=== PATIENT | male | born 1950 | race Caucasian/White ===

== ENCOUNTER 2023-01-04 14:44 | Inpatient (IN) | payer BC ==
[2023-01-04] VITALS (11 sets, daily range): BP systolic 130–165; BP diastolic 46–79
[~2023-01-04] VITALS: Ht 170.2 cm; Wt 104.8 kg
[~2023-01-04 14:44] MED LIST: heparin 10,000 units/1 ML INJ ONE; papaverine 30 mg/ml 2ml inj. ONE
[2023-01-04] MEDS ORDERED: diphenhydrAMINE 25mg capsule PO PRN (15:45)
[2023-01-04] MEDS ORDERED: LORazepam 0.5 MG tablet PO PRN (15:45)
[2023-01-04 15:51] LABS: BASOPHILS % (AUTO) 0.6 % (0-1); EOSINOPHILS # (AUTO) 0.2 X10'3 (0-0.9); EOSINOPHILS % (AUTO) 3.3 % (0-6); HEMATOCRIT 39.2 % (42.0-52.0); HEMOGLOBIN 13.2 g/dl (14.0-17.9); LYMPHOCYTES # (AUTO) 1.5 X10'3 (1.1-4.8); LYMPHOCYTES % (AUTO) 21.2 % (21-51); MEAN CORPUSCULAR HEMOGLOBIN 30.7 PG (27.0-31.0); MEAN CORPUSCULAR HGB CONC 33.7 g/dL (33.0-36.5); MEAN PLATELET VOLUME 7.9 FL (7.4-10.4); MONOCYTES # (AUTO) 0.6 X10'3 (0-0.9); MONOCYTES % (AUTO) 8.3 % (2-12); NEUTROPHILS # (AUTO) 4.9 X10'3 (1.8-7.7); NEUTROPHILS % (AUTO) 66.6 % (42-75); PLATELET COUNT 262 X10'3 (140-440); RED BLOOD COUNT 4.31 X10'6 (4.70-6.10); RED CELL DISTRIBUTION WIDTH 13.7 % (11.5-14.5); WHITE BLOOD COUNT 7.3 X10'3 (4.5-11.0)
[2023-01-04 15:57] LABS: ANION GAP 6 (8-16); BLOOD UREA NITROGEN 36 MG/DL (7-18); BUN/CREATININE RATIO 14.4 (5.4-32.0); CALCIUM 9.7 MG/DL (8.5-10.1); CHLORIDE 107 MMOL/L (99-107); GLUCOSE 219 MG/DL (70-104); POTASSIUM 4.6 MMOL/L (3.5-5.1); SODIUM 140 MMOL/L (135-145); TOTAL CARBON DIOXIDE 26.8 MMOL/L (24-32); eGFR 26 ML/MIN
[2023-01-04] MEDS ORDERED: midazolam 1 mg/ML 2ml injection ONE (16:06)
[2023-01-04] MEDS ORDERED: NITR0.4T48 SL (16:06)
[2023-01-04] MEDS ORDERED: LISI20TA28 PO (16:06)
[2023-01-04] MEDS ORDERED: heparin 1,000unit/ml 10ml vial 10 ML ONE (16:06)
[2023-01-04] MEDS ORDERED: fentaNYL/PF 50MCG/1 ML 2ML syringe ONE (16:06)
[2023-01-04] MEDS ORDERED: METF-438 PO (16:06)
[2023-01-04] MEDS ORDERED: verapamil 2.5 mg/ml inj IV ONE (16:06)
[2023-01-04] MEDS ORDERED: LIDOcaine 1% (10mg/ml) 2ml vial ONE (16:06)
[2023-01-04] MEDS ORDERED: nitroGLYCERIN-Tridil 50MG/D5W 250 ML IV ONE (16:06)
[2023-01-04] MEDS ORDERED: METO-395 PO (16:06)
[2023-01-04] MEDS ORDERED: LEVO88TA7 PO (16:06)
[2023-01-04] MEDS ORDERED: SIMV-45 PO (16:06)
[2023-01-04] MEDS ORDERED: TERA1CAP4 PO (16:06)
[2023-01-04] MEDS: normal saline 1,000 ML IV SCH (16:07)
[2023-01-04] MEDS ORDERED: iohexol 350MG/ML 100ml bottle IV ONE (16:07)
[2023-01-04] MEDS ORDERED: ADAL40KI SQ (16:10)
[2023-01-04] MEDS ORDERED: ASPI-1053 PO (16:10)
[2023-01-04] MEDS ORDERED: DAPA10TA PO (16:10)
[2023-01-04] MEDS ORDERED: CINN500C15 PO (16:10)
[2023-01-04] MEDS ORDERED: OMEG-5 PO (16:10)
[2023-01-04] MEDS ORDERED: OMEP40CA21 PO (16:10)
[2023-01-04] MEDS ORDERED: VALERIAN ROOT PO (16:16)
[2023-01-04] MEDS ORDERED: CHOL20002 PO ×2 (16:20→16:44)
[2023-01-04] MEDS ORDERED: MULT-1085 PO (16:20)
[2023-01-04] MEDS ORDERED: UBID100C45 PO (16:44)
[2023-01-04 16:58] LABS: APTT 30 SECONDS (22-32)
[2023-01-04] MEDS ORDERED: heparin 25,000 UNIT/250ml bag 250 ML IV ONE (19:02)
--- NOTE | 2023-01-04 19:14 | NUR ---
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 Patient being admitted to PCU for surgical consult. Vital signs stable. NSR on site monitor. Right radial stable with vasc band in place. Patient denies chest pain.
[2023-01-04] MEDS ORDERED: temazepam 15mg capsule PO PRN (19:25)
[2023-01-04] MEDS ORDERED: nitroGLYCERIN 1gm ointment UD TP ONE (19:25)
--- NOTE | 2023-01-04 19:26 | NUR ---
New order from Dr. Dooley. 2" nitro paste now. DC 01/05/23 @ 0700. Restoril 30 mg PO HS today.
[2023-01-04] MEDS ORDERED: HYDROcodone/acetaminophen 10/325mg tab PO PRN (19:50)
[2023-01-04] MEDS ORDERED: HYDROcodone/acetaminophen 5mg/325mg tablet PO PRN (19:50)
[2023-01-04] MEDS ORDERED: proCHLORperazine 10 MG/2 ml inj IV PRN (19:50)
[2023-01-04] MEDS ORDERED: OXAZEpam 15mg capsule PO PRN (19:50)
[2023-01-04] MEDS ORDERED: nitroGLYCERIN 0.4mg SUBLingual tab SL PRN (19:50)
[2023-01-04] MEDS ORDERED: ondansetron/PF 4mg/2ml inj IV PRN (19:50)
[2023-01-04] MEDS ORDERED: heparin 10,000 units/1 ML INJ IV ONE (20:18)
[2023-01-04] MEDS ORDERED: heparin 25,000 UNIT/250ml bag 250 ML IV PRN (20:19)
[2023-01-04] MEDS ORDERED: heparin 10,000 units/1 ML INJ IV PRN (20:22)
[2023-01-04] MEDS ORDERED: nitroGLYCERIN 0.4mg SUBLingual tab SL SCH (20:25)
[2023-01-04] MEDS ORDERED: MESSAGE TO NURSING PO ONE ×4 (20:35)
[2023-01-04] MEDS ORDERED: MESSAGE TO PHARMACY IJ ONE (20:35)
[2023-01-04] MEDS ORDERED: dextrose 50%-water 50ml dispensing syringe IV PRN (20:35)
[2023-01-04] MEDS ORDERED: VALERIAN ROOT PO SCH (21:00)
--- NOTE | 2023-01-04 21:30 | NUR ---
Report called to JOANN Engel. Patient to be admitted to [facility] 3012[facility].
--- NOTE | 2023-01-04 22:10 | NUR ---
Patient transported to [facility] in stable condition. Tele monitor in place. Bedside report given to JOANN Engel. All questions answered.
[2023-01-04 23:18] LABS: BASOPHILS % (AUTO) 0.4 % (0-1); EOSINOPHILS # (AUTO) 0.3 X10'3 (0-0.9); EOSINOPHILS % (AUTO) 3.9 % (0-6); HEMOGLOBIN 12.5 g/dl (14.0-17.9); LYMPHOCYTES # (AUTO) 1.8 X10'3 (1.1-4.8); LYMPHOCYTES % (AUTO) 23.1 % (21-51); MEAN CORPUSCULAR HEMOGLOBIN 29.9 PG (27.0-31.0); MEAN CORPUSCULAR HGB CONC 32.8 g/dL (33.0-36.5); MEAN CORPUSCULAR VOLUME 91.3 FL (78-98); MEAN PLATELET VOLUME 7.9 FL (7.4-10.4); MONOCYTES # (AUTO) 0.8 X10'3 (0-0.9); MONOCYTES % (AUTO) 9.9 % (2-12); NEUTROPHILS # (AUTO) 4.9 X10'3 (1.8-7.7); NEUTROPHILS % (AUTO) 62.7 % (42-75); PLATELET COUNT 258 X10'3 (140-440); RED BLOOD COUNT 4.17 X10'6 (4.70-6.10); RED CELL DISTRIBUTION WIDTH 13.8 % (11.5-14.5); WHITE BLOOD COUNT 7.9 X10'3 (4.5-11.0)
[2023-01-04 23:26] LABS: APTT 40 SECONDS (22-32)
[2023-01-04 23:44] LABS: ABG BASE EXCESS -4.8 mmol/L (-2.0-2.0); ABG HCO3 19.8 mmol/L (22.0-26.0); ABG OXYGEN SATURATION 94.4 % (94-97); ABG PCO2 (T) 35.2 mmHg (35.0-48.0); ABG PO2 (T) 74.2 mmHg (75.0-100.0); ALLEN'S TEST POSITIVE; FCOHb 0.3 % (0.0-3.9); FMetHb 0.2 % (0.0-1.5); FO2Hb 93.9 % (94-97); TOTAL HEMOGLOBIN 12.2 G/dl (14.0-17.9)
[2023-01-05] VITALS (12 sets, daily range): BP systolic 85–145; BP diastolic 48–67
[2023-01-05] MEDS: Terazosin 1mg capsule PO SCH ×2 (00:31→21:00)
[2023-01-05] MEDS: normal saline 1,000 ML IV SCH ×2 (01:45→11:45)
[2023-01-05 03:23] LABS: BASOPHILS % (AUTO) 0.5 % (0-1); EOSINOPHILS # (AUTO) 0.3 X10'3 (0-0.9); EOSINOPHILS % (AUTO) 3.9 % (0-6); HEMATOCRIT 34.3 % (42.0-52.0); HEMOGLOBIN 11.5 g/dl (14.0-17.9); LYMPHOCYTES # (AUTO) 1.8 X10'3 (1.1-4.8); LYMPHOCYTES % (AUTO) 26.9 % (21-51); MEAN CORPUSCULAR HEMOGLOBIN 30.6 PG (27.0-31.0); MEAN CORPUSCULAR HGB CONC 33.6 g/dL (33.0-36.5); MEAN PLATELET VOLUME 7.9 FL (7.4-10.4); MONOCYTES # (AUTO) 0.6 X10'3 (0-0.9); MONOCYTES % (AUTO) 9.1 % (2-12); NEUTROPHILS # (AUTO) 3.9 X10'3 (1.8-7.7); NEUTROPHILS % (AUTO) 59.6 % (42-75); PLATELET COUNT 223 X10'3 (140-440); RED BLOOD COUNT 3.77 X10'6 (4.70-6.10); RED CELL DISTRIBUTION WIDTH 13.5 % (11.5-14.5); WHITE BLOOD COUNT 6.6 X10'3 (4.5-11.0)
[2023-01-05 03:30] LABS: ALBUMIN 3.1 G/DL (3.4-5.0); ANION GAP 9 (8-16); BLOOD UREA NITROGEN 35 MG/DL (7-18); CALCIUM 8.8 MG/DL (8.5-10.1); CHLORIDE 109 MMOL/L (99-107); CREATININE 2.34 MG/DL (0.60-1.10); GLUCOSE 156 MG/DL (70-104); POTASSIUM 4.4 MMOL/L (3.5-5.1); SODIUM 141 MMOL/L (135-145); TOTAL CARBON DIOXIDE 22.6 MMOL/L (24-32); eGFR 28 ML/MIN
[2023-01-05] MEDS ORDERED: ondansetron 4mg rapidly disintigrating tab PO PRN (06:00)
[2023-01-05] MEDS ORDERED: cefazolin 2gm/D5W 100mL 100 ML IV ONE (07:00)
[2023-01-05] MEDS ORDERED: gabapentin 400mg capsule PO ONE (07:00)
[2023-01-05] MEDS ORDERED: insulin glargine (Lantus) pen - multi-dose SQ PRN ×2 (07:00→18:45)
[2023-01-05] MEDS ORDERED: pantoprazole 40mg Tablet.DR PO SCH (07:30)
[2023-01-05] MEDS ORDERED: aspirin 81mg tab.chew PO SCH (08:00)
[2023-01-05] MEDS: levoTHYROXINE 88mcg tablet PO SCH (08:00)
[2023-01-05] MEDS ORDERED: lisinopril 20mg tablet PO SCH (08:00)
[2023-01-05] MEDS ORDERED: atorvastatin 20mg tablet PO SCH (08:00)
[2023-01-05] MEDS ORDERED: metoprolol succinate 25mg (24-HOUR) SR. Tablet PO SCH (08:00)
[2023-01-05] MEDS ORDERED: OMEGA-3/DHA/EPA/FISH OIL 1 EACH CAPSULE.DR PO SCH (08:00)
[2023-01-05] MEDS ORDERED: mupirocin 2% nasal ointment 1gm UD NS SCH (08:00)
[2023-01-05] MEDS ORDERED: DAPAGLIFLOZIN 10MG TABLET PO SCH (08:00)
[2023-01-05] MEDS: multivitamins, therapeutics tablet PO SCH (08:06)
[2023-01-05] MEDS: cholecalciferol (vitamin D3) 1,000 unit (25mcg) tablet PO SCH (08:07)
[2023-01-05] MEDS ORDERED: LORazepam 2 mg/ml vial IV ONE (09:55)
[2023-01-05] MEDS ORDERED: MESSAGE TO NURSING PO ONE (10:00)
--- NOTE | 2023-01-05 10:42 | NUR ---
DM Consult: Pt hx T2DM A1C 8.0% currently in OR for CABG during RD attempted visit today. Pt would benefit from DM/HH/high protein diet eds once appropriate post-op prior to discharge. Addendum: 01/05/23 at [address] Amended: Links added.
[2023-01-05] MEDS ORDERED: albumin (human) 25% 100 ML IV solution IV ONE (12:00)
[2023-01-05] MEDS ORDERED: heparin 10,000 units/1 ML INJ ONE (12:00)
[2023-01-05] MEDS ORDERED: NORepinephrine bitart. inj. IV ONE (12:00)
[2023-01-05] MEDS ORDERED: magnesium 1 GM/2 ML inj ONE (12:00)
[2023-01-05] MEDS ORDERED: potassium Cl 2 mEq/ml inj IV ONE (12:00)
[2023-01-05] MEDS ORDERED: mannitol 12.5gm/50mL VIAL IV ONE (12:00)
[2023-01-05] MEDS ORDERED: calcium chloride 100 MG/1 ML inj IV ONE (12:00)
[2023-01-05] MEDS ORDERED: sodium bicarbonate (8.4%) 1 mEq/ml syringe ONE (12:00)
[2023-01-05] MEDS ORDERED: aminocaproic acid 250 MG/1 ML inj. ONE (12:00)
[2023-01-05] MEDS ORDERED: methylPREDNISolone sod succ 1000mg vial ONE (12:00)
[2023-01-05] MEDS ORDERED: LIDOcaine 2% (20 mg/ml) 5ml cardiac syringe ONE (12:00)
[2023-01-05] MEDS ORDERED: propofol inj 20 ML IV ONE (12:04)
[2023-01-05] MEDS ORDERED: SUfentanil 50mcg/ml 1ml amp IV ONE (12:04)
[2023-01-05] MEDS ORDERED: rocuronium 10mg/ml inj IV ONE ×2 (12:04→12:36)
[2023-01-05] MEDS ORDERED: MIDAZolam 1 MG/ML 5ML VIAL ONE (12:04)
[2023-01-05] MEDS ORDERED: protamine sulf. 10mg/ml inj. IV ONE (12:36)
[2023-01-05] MEDS ORDERED: sevoflurane 250ml liquid IH ONE (12:36)
[2023-01-05] MEDS ORDERED: nitroGLYCERIN in D5W 50mg/250ml (Tridil) infusion IV ONE (12:36)
--- NOTE | 2023-01-05 12:42 | NUR ---
Patients heparin was stopped at [address] Stroud called back around 1100 and advised me to restart the heparin, and that the patient would go down to surgery with it running.
[2023-01-05 13:36] LABS: ABG BASE EXCESS -3.1 mmol/L (-2.0-2.0); ABG HCO3 21.9 mmol/L (22.0-26.0); ABG OXYGEN SATURATION 99.1 % (94-97); ABG PCO2 39.1 mmHg (35.0-48.0); ABG PO2 229.7 mmHg (75.0-100.0); CL (ABG) 110 mmol/L (99-107); FCOHb 0.2 % (0.0-3.9); FMetHb 0.3 % (0.0-1.5); FO2Hb 98.6 % (94-97); GLUCOSE (ABG) 149 mg/dl (70-104); IONIZED CA (ABG) 1.19 mmol/L (1.10-1.30); K (ABG) 4.7 mmol/L (3.5-5.1); TOTAL HEMOGLOBIN 11.4 G/dl (14.0-17.9)
[2023-01-05] MEDS ORDERED: BUPIVAcaine 0.5% inj/PF 30 ML ONE (13:37)
--- NOTE | 2023-01-05 13:50 | NUR ---
Pt went to OR for CABG. Tele discontinued. All belongings collected and sent with patient. Pt will go to ICU post op.
[2023-01-05] MEDS ORDERED: BUPIVAcaine 0.5% inj/PF 30 ml vial IJ ONE (14:08)
[2023-01-05] MEDS ORDERED: papaverine 30 mg/ml 2ml inj. IA ONE (14:10)
[2023-01-05] MEDS ORDERED: heparin 10,000 units/1 ML INJ IR ONE (14:11)
[2023-01-05 15:40] LABS: ABG BASE EXCESS VENOUS -3.4 mmol/L (-2.0 - 2.0); ABG PCO2 VENOUS 48.1 mmHg (41.0-54.0); ABG PO2 VENOUS 56.2 mmHg (25.0-35.0); CL (ABG) 108 mmol/L (99-107); FCOHb VENOUS 0.8 %; FHHb VENOUS 12.3 %; FMetHb VENOUS 0.3 % (0.0 - 0.5); FO2Hb VENOUS 86.6 %; GLUCOSE (ABG) 144 mg/dl (70-104); IONIZED CA (ABG) 1.07 mmol/L (1.10-1.30); K (ABG) 5.8 mmol/L (3.5-5.1); TOTAL HEMOGLOBIN 8.9 G/dl (14.0-17.9)
[2023-01-05 15:43] LABS: ABG BASE EXCESS -3.4 mmol/L (-2.0-2.0); ABG HCO3 22.6 mmol/L (22.0-26.0); ABG PCO2 45.4 mmHg (35.0-48.0); ABG PO2 475.3 mmHg (75.0-100.0); CL (ABG) 108 mmol/L (99-107); FMetHb 0.3 % (0.0-1.5); FO2Hb 98.7 % (94-97); GLUCOSE (ABG) 144 mg/dl (70-104); IONIZED CA (ABG) 1.09 mmol/L (1.10-1.30); K (ABG) 5.3 mmol/L (3.5-5.1)
[2023-01-05 16:12] LABS: ABG BASE EXCESS -3.9 mmol/L (-2.0-2.0); ABG HCO3 21.9 mmol/L (22.0-26.0); ABG OXYGEN SATURATION 99.4 % (94-97); ABG PO2 381.3 mmHg (75.0-100.0); CL (ABG) 109 mmol/L (99-107); FCOHb 0.7 % (0.0-3.9); FMetHb 0.3 % (0.0-1.5); FO2Hb 98.4 % (94-97); GLUCOSE (ABG) 151 mg/dl (70-104); IONIZED CA (ABG) 1.09 mmol/L (1.10-1.30); K (ABG) 5.3 mmol/L (3.5-5.1)
[2023-01-05 16:41] LABS: ABG OXYGEN SATURATION 99.2 % (94-97); ABG PCO2 43.3 mmHg (35.0-48.0); ABG PO2 332.1 mmHg (75.0-100.0); CL (ABG) 108 mmol/L (99-107); FCOHb 0.4 % (0.0-3.9); FMetHb 0.3 % (0.0-1.5); FO2Hb 98.5 % (94-97); GLUCOSE (ABG) 164 mg/dl (70-104); IONIZED CA (ABG) 1.11 mmol/L (1.10-1.30); K (ABG) 5.4 mmol/L (3.5-5.1); TOTAL HEMOGLOBIN 9.2 G/dl (14.0-17.9)
[2023-01-05 17:10] LABS: ABG BASE EXCESS -2.5 mmol/L (-2.0-2.0); ABG HCO3 22.6 mmol/L (22.0-26.0); ABG OXYGEN SATURATION 98.7 % (94-97); ABG PO2 262.2 mmHg (75.0-100.0); CL (ABG) 108 mmol/L (99-107); FCOHb 0.3 % (0.0-3.9); FMetHb 0.3 % (0.0-1.5); FO2Hb 98.1 % (94-97); GLUCOSE (ABG) 185 mg/dl (70-104); IONIZED CA (ABG) 1.73 mmol/L (1.10-1.30); K (ABG) 5.8 mmol/L (3.5-5.1); TOTAL HEMOGLOBIN 8.6 G/dl (14.0-17.9)
[2023-01-05 17:43] LABS: ABG BASE EXCESS VENOUS -3.6 mmol/L (-2.0 - 2.0); ABG HCO3 VENOUS 22.8 mmol/L (21.0-28.0); ABG PCO2 VENOUS 47.2 mmHg (41.0-54.0); ABG PO2 VENOUS 46.1 mmHg (25.0-35.0); CL (ABG) 108 mmol/L (99-107); FHHb VENOUS 19.6 %; FMetHb VENOUS 0.3 % (0.0 - 0.5); FO2Hb VENOUS 79.1 %; GLUCOSE (ABG) 182 mg/dl (70-104); IONIZED CA (ABG) 1.26 mmol/L (1.10-1.30); K (ABG) 5.3 mmol/L (3.5-5.1); TOTAL HEMOGLOBIN 9.5 G/dl (14.0-17.9)
[2023-01-05 17:46] LABS: ACTIVATED CLOTTING TIME 127 SEC (101-148)
[2023-01-05] MEDS ORDERED: ceFAZolin 1000mg inj ONE ×2 (18:00)
[2023-01-05] MEDS ORDERED: albumin (Human) 5% 250ml 250 ML IV ONE ×2 (18:08)
[2023-01-05] MEDS ORDERED: fentaNYL/PF 50MCG/1 ML 2ML syringe ONE (18:14)
[2023-01-05] MEDS: Insulin Reg/NS 100units/100mL 100 ML IV SCH (18:44)
--- NOTE | 2023-01-05 18:44 | NUR ---
Received to room 2007, accompanied by MDs and surgical crew. 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 Chest tubes to suction at 20 cm. Peres cath to gravity drainage. Dressings are dry and intact. See assessment record. All IV drips: Nitro, Insulin, 1/2 NS are infusing via central line.
[2023-01-05] MEDS ORDERED: potassium CL 10mEq/100ml bag 100 ML IV PRN (18:45)
[2023-01-05] MEDS ORDERED: magnesium 4gm in 100ml NS 100 ML IV PRN (18:45)
[2023-01-05] MEDS: sodium chloride 0.45% 1,000 ML IV SCH (18:45)
[2023-01-05] MEDS ORDERED: magnesium 2GM in 50ml NS 50 ML IV PRN (18:45)
[2023-01-05] MEDS ORDERED: Insulin Reg/NS 100units/100mL 100 ML IV SCH (18:45)
[2023-01-05] MEDS ORDERED: sodium phosphate inj. 30 MMOL in dextrose 5%-water 250 ML IV PRN (18:45)
[2023-01-05] MEDS ORDERED: HYDROcodone/acetaminophen 10/325mg tab PO PRN (18:45)
[2023-01-05] MEDS ORDERED: morphine 4 MG/ML inj SYRINge IV PRN (18:45)
[2023-01-05] MEDS ORDERED: potassium Cl 40MEQ/1/2NS 520ml 520 ML IV PRN (18:45)
[2023-01-05] MEDS ORDERED: bisacodyl 10mg suppository rectal RC PRN (18:45)
[2023-01-05] MEDS ORDERED: potassium Cl 40MEQ/270ML bag 250 ML IV PRN (18:45)
[2023-01-05] MEDS ORDERED: magnesium citrate 296ml oral solution PO PRN (18:45)
[2023-01-05] MEDS ORDERED: Neutra Phos packet PO PRN (18:45)
[2023-01-05] MEDS ORDERED: magnesium hydroxide 30ml (MOM) UD suspension PO PRN (18:45)
[2023-01-05] MEDS ORDERED: normal saline 250ml IV soln 250 ML IV PRN (18:45)
[2023-01-05] MEDS ORDERED: niCARDipine-NS 40mg/200ml IVPB 200 ML IV PRN (18:45)
[2023-01-05] MEDS ORDERED: sodium phosphate inj. 15 MMOL in dextrose 5%-water 250 ML IV PRN (18:45)
[2023-01-05] MEDS ORDERED: potassium Cl 20mEq/100mL bag 100 ML IV PRN (18:45)
[2023-01-05] MEDS ORDERED: DOPamine 400mg/D5W 250ml 250 ML IV PRN (18:45)
[2023-01-05] MEDS ORDERED: dextrose 50%-water 50ml dispensing syringe IV PRN (18:45)
[2023-01-05] MEDS ORDERED: nitroGLYCERIN-Tridil 50MG/D5W 250 ML IV PRN (18:45)
[2023-01-05] MEDS ORDERED: metoclopramide 5 mg/ml inj IV PRN (18:45)
[2023-01-05] MEDS ORDERED: potassium Cl 20 mEq SR tablet PO PRN (18:45)
[2023-01-05] MEDS ORDERED: acetaminophen 325mg tablet PO PRN ×2 (18:45)
[2023-01-05] MEDS ORDERED: ondansetron/PF 4mg/2ml inj IV PRN (18:45)
[2023-01-05] MEDS ORDERED: mineral oil 133ml enema RC PRN (18:45)
[2023-01-05 19:00] LABS: BASOPHILS % (AUTO) 0.3 % (0-1); EOSINOPHILS % (AUTO) 0.5 % (0-6); HEMATOCRIT 30.4 % (42.0-52.0); HEMOGLOBIN 9.9 g/dl (14.0-17.9); LYMPHOCYTES # (AUTO) 0.5 X10'3 (1.1-4.8); LYMPHOCYTES % (AUTO) 5.6 % (21-51); MEAN CORPUSCULAR HEMOGLOBIN 29.9 PG (27.0-31.0); MEAN CORPUSCULAR HGB CONC 32.6 g/dL (33.0-36.5); MEAN CORPUSCULAR VOLUME 91.8 FL (78-98); MEAN PLATELET VOLUME 7.8 FL (7.4-10.4); MONOCYTES # (AUTO) 0.5 X10'3 (0-0.9); MONOCYTES % (AUTO) 5.2 % (2-12); NEUTROPHILS # (AUTO) 7.8 X10'3 (1.8-7.7); NEUTROPHILS % (AUTO) 88.4 % (42-75); PLATELET COUNT 136 X10'3 (140-440); RED BLOOD COUNT 3.31 X10'6 (4.70-6.10); RED CELL DISTRIBUTION WIDTH 13.6 % (11.5-14.5); WHITE BLOOD COUNT 8.8 X10'3 (4.5-11.0)
[2023-01-05 19:16] LABS: ALANINE AMINOTRANSFERASE 23 U/L (12-78); ALBUMIN 3.2 G/DL (3.4-5.0); ALBUMIN/GLOBULIN RATIO 1.5 (1.1-1.5); ALKALINE PHOSPHATASE 47 IU/L (46-116); ANION GAP 8 (8-16); ASPARTATE AMINO TRANSFERASE 37 U/L (10-37); BILIRUBIN,TOTAL 0.7 MG/DL (0.1-1.0); BLOOD UREA NITROGEN 27 MG/DL (7-18); BUN/CREATININE RATIO 12.8 (5.4-32.0); CHLORIDE 111 MMOL/L (99-107); CREATININE 2.11 MG/DL (0.60-1.10); GLUCOSE 161 MG/DL (70-104); MAGNESIUM 3.1 MG/DL (1.5-2.4); PHOSPHORUS 3.6 MG/DL (2.3-4.5); SODIUM 142 MMOL/L (135-145); TOTAL CARBON DIOXIDE 23.2 MMOL/L (24-32); TOTAL PROTEIN 5.4 G/DL (6.4-8.2); eGFR 31 ML/MIN
[2023-01-05 19:46] LABS: CLARITY,URINE CLEAR (Clear); COLOR,URINE YELLOW (Yellow); GLUCOSE, URINE 500 mg/dl (Neg); KETONES,URINE NEGATIVE (Neg); LEUKOCYTE ESTERASE ,URINE NEGATIVE (Neg); NITRITES, URINE NEGATIVE (Neg); OCCULT BLOOD,URINE MODERATE (Neg); PROTEIN,URINE NEGATIVE (Neg); UROBILINOGEN,URINE 0.2 E.U/dL (0.2-1.0)
[2023-01-05 19:52] LABS: TOTAL PROTEIN,URINE RANDOM 23.7 MG/DL
[2023-01-05] MEDS: mupirocin 2% nasal ointment 1gm UD NS SCH (20:00)
[2023-01-05] MEDS: sennosides/docusate sodium tablet PO SCH (20:00)
[2023-01-05] MEDS: vancomycin/NS 1 GM ADD-VANTAGE 250 ML IV SCH (20:00)
[2023-01-05 20:05] LABS: UA COLLECTION TYPE NON-SPECIFIED
[2023-01-05 20:09] LABS: BACTERIA,URINE NONE SEEN /HPF (Neg); MUCUS STRANDS FEW /LPF (Neg); SQUAMOUS EPITHELIAL CELL,UR FEW /LPF (FEW); WBC,URINE 0-4 /HPF (0-4)
[2023-01-05 20:22] LABS: APTT 29 SECONDS (22-32)
--- NOTE | 2023-01-05 20:30 | NUR ---
Dr. Stroud updated on patient's current labs and hemodynamics. Orders received.
[2023-01-05 20:44] LABS: UA EOSINOPHILS FEW EOS /HPF
[2023-01-05] MEDS: atorvastatin 10mg tablet PO SCH (21:00)
[2023-01-05] MEDS ORDERED: gabapentin 300mg capsule PO SCH (21:00)
[2023-01-05] MEDS: albumin (Human) 5% 250ml 250 ML IV PRN ×2 (21:32→22:30)
[2023-01-05] MEDS ORDERED: NORepinephrine 8mg/ 250ml NS 250 ML IV PRN (22:50)
[2023-01-05 23:09] LABS: ABG BASE EXCESS -6.7 mmol/L (-2.0-2.0); ABG HCO3 19.8 mmol/L (22.0-26.0); ABG OXYGEN SATURATION 97.5 % (94-97); ABG PCO2 (T) 41.5 mmHg (35.0-48.0); ABG PO2 (T) 112.7 mmHg (75.0-100.0); FCOHb 0.3 % (0.0-3.9); FMetHb 0.2 % (0.0-1.5); PATIENT TEMPERATURE 35.7; PEEP 5 cm H2O; RESPIRATORY RATE 12 b/min; TIDAL VOLUME 500 mL; TOTAL HEMOGLOBIN 10.8 G/dl (14.0-17.9)
[2023-01-06] VITALS (25 sets, daily range): BP systolic 100–143; BP diastolic 40–74
[2023-01-06] MEDS: morphine 2 MG/ML inj. syringe IV PRN ×3 (00:47→16:00)
--- NOTE | 2023-01-06 00:53 | NUR ---
Weaning from ventilator in progress. Patient occasionally opens eyes spontaneously and to voice. Not following commands yet but nods head to questioning regarding pain. Medicated for pain level of 4 to 6 per non verbal pain scale. O2 sats 92% on 40%. Titrating Levophed at low dose to keep MAP within parameters.
[2023-01-06] MEDS: ceFAZolin/D5W- 1GM premix 50 ML IV SCH ×3 (01:01→15:59)
[2023-01-06 02:38] LABS: BASOPHILS % (AUTO) 0.1 % (0-1); EOSINOPHILS % (AUTO) 0 % (0-6); HEMATOCRIT 30.1 % (42.0-52.0); HEMOGLOBIN 9.9 g/dl (14.0-17.9); LYMPHOCYTES # (AUTO) 0.5 X10'3 (1.1-4.8); LYMPHOCYTES % (AUTO) 3.6 % (21-51); MEAN CORPUSCULAR HEMOGLOBIN 30.3 PG (27.0-31.0); MEAN PLATELET VOLUME 8.1 FL (7.4-10.4); MONOCYTES # (AUTO) 0.6 X10'3 (0-0.9); MONOCYTES % (AUTO) 4.8 % (2-12); NEUTROPHILS # (AUTO) 11.5 X10'3 (1.8-7.7); NEUTROPHILS % (AUTO) 91.5 % (42-75); PLATELET COUNT 180 X10'3 (140-440); RED BLOOD COUNT 3.27 X10'6 (4.70-6.10); RED CELL DISTRIBUTION WIDTH 13.8 % (11.5-14.5); WHITE BLOOD COUNT 12.6 X10'3 (4.5-11.0)
[2023-01-06 02:48] LABS: ABG BASE EXCESS -5.7 mmol/L (-2.0-2.0); ABG HCO3 19.9 mmol/L (22.0-26.0); ABG OXYGEN SATURATION 94.6 % (94-97); ABG PCO2 (T) 39.9 mmHg (35.0-48.0); ABG PO2 (T) 77.4 mmHg (75.0-100.0); FCOHb 0.3 % (0.0-3.9); FMetHb 0.2 % (0.0-1.5); FO2Hb 94.1 % (94-97); PATIENT TEMPERATURE 37.4; TOTAL HEMOGLOBIN 10.7 G/dl (14.0-17.9)
[2023-01-06 02:48] LABS: APTT 35 SECONDS (22-32)
[2023-01-06 02:56] LABS: ALANINE AMINOTRANSFERASE 24 U/L (12-78); ALBUMIN 3.7 G/DL (3.4-5.0); ALBUMIN/GLOBULIN RATIO 1.7 (1.1-1.5); ALKALINE PHOSPHATASE 47 IU/L (46-116); ANION GAP 11 (8-16); ASPARTATE AMINO TRANSFERASE 41 U/L (10-37); BILIRUBIN,TOTAL 0.6 MG/DL (0.1-1.0); BLOOD UREA NITROGEN 28 MG/DL (7-18); CHLORIDE 112 MMOL/L (99-107); CREATININE 2.55 MG/DL (0.60-1.10); GLUCOSE 155 MG/DL (70-104); MAGNESIUM 2.8 MG/DL (1.5-2.4); PHOSPHORUS 2.5 MG/DL (2.3-4.5); POTASSIUM 5.4 MMOL/L (3.5-5.1); SODIUM 144 MMOL/L (135-145); TOTAL CARBON DIOXIDE 21.1 MMOL/L (24-32); TOTAL PROTEIN 5.9 G/DL (6.4-8.2); eGFR 25 ML/MIN
--- NOTE | 2023-01-06 03:17 | NUR ---
Dr. Stroud updated on current ABG, hemodynamics and latest labs. Okay to extubate per MD if patient passes weaning parameters
--- NOTE | 2023-01-06 03:43 | NUR ---
Extubated patient with RT without incident after passing weaning trial. Able to manage airway and secretions,educated on use of heart pillow for splinting while coughing, patient verbalizes understanding. Medicated for pain level of 5 per patient statement.
--- NOTE | 2023-01-06 06:14 | NUR ---
Problems reprioritized. Patient report given, questions answered & plan of care reviewed with Luis DAVID.
[2023-01-06] MEDS ORDERED: DEXTROSE 15 GM of carb/4 tabs (each vial/BOTTLE has 4 tablets) PO PRN ×2 (06:40)
[2023-01-06] MEDS ORDERED: glucagon, human recombinant 1mg kit SUBCUT PRN (06:40)
[2023-01-06] MEDS ORDERED: dextrose 50%-water 50ml dispensing syringe IV PRN ×2 (06:40)
[2023-01-06] MEDS: metoprolol tartrate 12.5mg (1/2 tablet) PO SCH ×2 (08:00→21:44)
[2023-01-06] MEDS: Insulin Reg/NS 100units/100mL 100 ML IV SCH (08:16)
[2023-01-06] MEDS: vancomycin/NS 1 GM ADD-VANTAGE 250 ML IV SCH ×2 (08:29→20:07)
[2023-01-06] MEDS ORDERED: HYDROcodone/acetaminophen 5mg/325mg tablet PO PRN (08:30)
[2023-01-06] MEDS: cholecalciferol (vitamin D3) 1,000 unit (25mcg) tablet PO SCH (08:31)
[2023-01-06] MEDS: multivitamins, therapeutics tablet PO SCH (08:31)
[2023-01-06] MEDS: mupirocin 2% nasal ointment 1gm UD NS SCH ×2 (08:32→20:07)
[2023-01-06] MEDS: sennosides/docusate sodium tablet PO SCH ×2 (08:32→20:03)
[2023-01-06] MEDS: aspirin 81mg tab.chew PO SCH (08:32)
[2023-01-06] MEDS: levoTHYROXINE 88mcg tablet PO SCH (08:44)
[2023-01-06] MEDS: insulin Lispro (HumaLOG) vial - multi-dose SQ SCH ×3 (09:29→18:23)
--- NOTE | 2023-01-06 10:33 | NUR ---
Nutrition consult: Pt POD #1 s/p CABG x 2, just extubated early this morning per EMR. Pt would benefit from post-CABG and DM nutrition therapy educations once appropriate with A1c 8.0%. Will continue to follow. Addendum: 01/06/23 at [address] Amended: Links added.
[2023-01-06 12:23] LABS: ALBUMIN 3.3 G/DL (3.4-5.0); ANION GAP 7 (8-16); BLOOD UREA NITROGEN 29 MG/DL (7-18); BUN/CREATININE RATIO 10.9 (5.4-32.0); CALCIUM 8.7 MG/DL (8.5-10.1); CHLORIDE 112 MMOL/L (99-107); CREATININE 2.65 MG/DL (0.60-1.10); GLUCOSE 135 MG/DL (70-104); MAGNESIUM 2.5 MG/DL (1.5-2.4); SODIUM 142 MMOL/L (135-145); TOTAL CARBON DIOXIDE 23.3 MMOL/L (24-32); eGFR 24 ML/MIN
--- NOTE | 2023-01-06 18:18 | NUR ---
Problems reprioritized. Patient report given, questions answered & plan of care reviewed with Elsi DAVID.
[2023-01-06] MEDS: HYDROcodone/acetaminophen 10/325mg tab PO PRN (20:03)
[2023-01-06] MEDS: atorvastatin 10mg tablet PO SCH (20:03)
[2023-01-06] MEDS: Terazosin 1mg capsule PO SCH (21:00)
[2023-01-07] VITALS (23 sets, daily range): BP systolic 86–128; BP diastolic 49–66
[2023-01-07] MEDS: ceFAZolin/D5W- 1GM premix 50 ML IV SCH ×2 (00:29→07:48)
[2023-01-07 04:26] LABS: BASOPHILS % (AUTO) 0.1 % (0-1); EOSINOPHILS % (AUTO) 0 % (0-6); HEMATOCRIT 28.6 % (42.0-52.0); HEMOGLOBIN 9.2 g/dl (14.0-17.9); LYMPHOCYTES # (AUTO) 1.1 X10'3 (1.1-4.8); LYMPHOCYTES % (AUTO) 7.3 % (21-51); MEAN CORPUSCULAR HEMOGLOBIN 29.7 PG (27.0-31.0); MEAN PLATELET VOLUME 8.2 FL (7.4-10.4); MONOCYTES # (AUTO) 1.6 X10'3 (0-0.9); MONOCYTES % (AUTO) 10.3 % (2-12); NEUTROPHILS # (AUTO) 12.7 X10'3 (1.8-7.7); NEUTROPHILS % (AUTO) 82.3 % (42-75); PLATELET COUNT 169 X10'3 (140-440); RED BLOOD COUNT 3.08 X10'6 (4.70-6.10); RED CELL DISTRIBUTION WIDTH 14.2 % (11.5-14.5); WHITE BLOOD COUNT 15.5 X10'3 (4.5-11.0)
[2023-01-07 04:47] LABS: ALBUMIN 2.9 G/DL (3.4-5.0); ANION GAP 9 (8-16); BLOOD UREA NITROGEN 35 MG/DL (7-18); BUN/CREATININE RATIO 11.9 (5.4-32.0); CALCIUM 8.4 MG/DL (8.5-10.1); CHLORIDE 110 MMOL/L (99-107); CREATININE 2.95 MG/DL (0.60-1.10); GLUCOSE 242 MG/DL (70-104); MAGNESIUM 2.3 MG/DL (1.5-2.4); PHOSPHORUS 4.9 MG/DL (2.3-4.5); POTASSIUM 5.5 MMOL/L (3.5-5.1); SODIUM 140 MMOL/L (135-145); TOTAL CARBON DIOXIDE 21.2 MMOL/L (24-32); eGFR 21 ML/MIN
--- NOTE | 2023-01-07 06:00 | NUR ---
Patient in room CICU 2006. I have received report from Elsi DAVID and had the opportunity to ask questions and assume patient care. Pt is laying low fowlers in bed. Pt on 1L NC. No s/s of disrtress, no s/s of pain at this time. CT sites CDI, CT to wall suction. No s/s of leak. BLL, call light within reach, frequently used items in reach, frequent rounding. Will continue to monitor.
--- NOTE | 2023-01-07 06:34 | NUR ---
Problems reprioritized. Patient report given, questions answered & plan of care reviewed with JOANN Kaye.
[2023-01-07] MEDS: HYDROcodone/acetaminophen 10/325mg tab PO PRN ×3 (07:45→22:14)
[2023-01-07] MEDS: levoTHYROXINE 88mcg tablet PO SCH (07:45)
[2023-01-07] MEDS: cholecalciferol (vitamin D3) 1,000 unit (25mcg) tablet PO SCH (07:46)
[2023-01-07] MEDS: multivitamins, therapeutics tablet PO SCH (07:46)
[2023-01-07] MEDS: aspirin 81mg tab.chew PO SCH (07:47)
[2023-01-07] MEDS: metoprolol tartrate 12.5mg (1/2 tablet) PO SCH ×2 (07:47→20:00)
[2023-01-07] MEDS: pantoprazole 40mg Tablet.DR PO SCH (07:50)
[2023-01-07] MEDS: mupirocin 2% nasal ointment 1gm UD NS SCH (07:52)
[2023-01-07] MEDS: insulin Lispro (HumaLOG) vial - multi-dose SQ SCH ×3 (08:16→18:43)
[2023-01-07] MEDS: insulin glargine (Lantus) pen - multi-dose SQ SCH (08:18)
[2023-01-07] MEDS: sennosides/docusate sodium tablet PO SCH ×2 (08:33→20:55)
[2023-01-07] MEDS ORDERED: furosemide 20MG tablet PO ONE (10:00)
[2023-01-07] MEDS ORDERED: polyethylene glycol 3350 17gm powd pack PO PRN (10:30)
[2023-01-07] MEDS: sodium chloride 0.45% 1,000 ML IV SCH (17:42)
--- NOTE | 2023-01-07 18:26 | NUR ---
Problems reprioritized. Patient report given, questions answered & plan of care reviewed with Lorraine DAVID.
--- NOTE | 2023-01-07 18:30 | NUR ---
Patient in room CICU 2006. I have received report from Mikki DAVID and had the opportunity to ask questions and assume patient care.
[2023-01-07] MEDS: Terazosin 1mg capsule PO SCH (20:47)
[2023-01-07] MEDS: atorvastatin 10mg tablet PO SCH (20:55)
[2023-01-08] VITALS (17 sets, daily range): BP systolic 95–134; BP diastolic 47–82
[2023-01-08 02:37] LABS: BASOPHILS % (AUTO) 0.2 % (0-1); EOSINOPHILS # (AUTO) 0.1 X10'3 (0-0.9); EOSINOPHILS % (AUTO) 0.5 % (0-6); HEMATOCRIT 26.7 % (42.0-52.0); HEMOGLOBIN 8.6 g/dl (14.0-17.9); LYMPHOCYTES # (AUTO) 1.2 X10'3 (1.1-4.8); LYMPHOCYTES % (AUTO) 10.4 % (21-51); MEAN CORPUSCULAR HEMOGLOBIN 29.7 PG (27.0-31.0); MEAN CORPUSCULAR HGB CONC 32.2 g/dL (33.0-36.5); MEAN CORPUSCULAR VOLUME 92.5 FL (78-98); MEAN PLATELET VOLUME 8.1 FL (7.4-10.4); MONOCYTES # (AUTO) 1.4 X10'3 (0-0.9); MONOCYTES % (AUTO) 12.2 % (2-12); NEUTROPHILS # (AUTO) 8.9 X10'3 (1.8-7.7); NEUTROPHILS % (AUTO) 76.7 % (42-75); PLATELET COUNT 166 X10'3 (140-440); RED BLOOD COUNT 2.89 X10'6 (4.70-6.10); RED CELL DISTRIBUTION WIDTH 14.1 % (11.5-14.5); WHITE BLOOD COUNT 11.7 X10'3 (4.5-11.0)
[2023-01-08 02:51] LABS: ALBUMIN 2.6 G/DL (3.4-5.0); ANION GAP 9 (8-16); BLOOD UREA NITROGEN 39 MG/DL (7-18); BUN/CREATININE RATIO 13.7 (5.4-32.0); CALCIUM 8.2 MG/DL (8.5-10.1); CHLORIDE 108 MMOL/L (99-107); CREATININE 2.85 MG/DL (0.60-1.10); GLUCOSE 137 MG/DL (70-104); MAGNESIUM 2.4 MG/DL (1.5-2.4); PHOSPHORUS 4.7 MG/DL (2.3-4.5); POTASSIUM 4.8 MMOL/L (3.5-5.1); SODIUM 139 MMOL/L (135-145); TOTAL CARBON DIOXIDE 22.5 MMOL/L (24-32); eGFR 22 ML/MIN
[2023-01-08] MEDS: HYDROcodone/acetaminophen 10/325mg tab PO PRN ×2 (03:52→20:15)
[2023-01-08] MEDS: aspirin 81mg tab.chew PO SCH (08:31)
[2023-01-08] MEDS: sennosides/docusate sodium tablet PO SCH ×2 (08:31→20:05)
[2023-01-08] MEDS: cholecalciferol (vitamin D3) 1,000 unit (25mcg) tablet PO SCH (08:31)
[2023-01-08] MEDS ORDERED: potassium Cl 20mEq/100mL bag 100 ML IV PRN (08:35)
[2023-01-08] MEDS ORDERED: potassium CL 10mEq/100ml bag 100 ML IV PRN (08:35)
[2023-01-08] MEDS ORDERED: potassium Cl 20 mEq SR tablet PO PRN ×2 (08:35)
[2023-01-08] MEDS ORDERED: potassium Cl 40MEQ/1/2NS 520ml 520 ML IV PRN (08:35)
[2023-01-08] MEDS ORDERED: magnesium 2GM in 50ml NS 50 ML IV PRN (08:35)
[2023-01-08] MEDS ORDERED: magnesium 4gm in 100ml NS 100 ML IV PRN (08:35)
[2023-01-08] MEDS: multivitamins, therapeutics tablet PO SCH (08:39)
[2023-01-08] MEDS: pantoprazole 40mg Tablet.DR PO SCH (08:39)
[2023-01-08] MEDS: levoTHYROXINE 88mcg tablet PO SCH (08:39)
[2023-01-08] MEDS: metoprolol tartrate 12.5mg (1/2 tablet) PO SCH ×2 (08:39→20:04)
[2023-01-08] MEDS ORDERED: potassium Cl 40MEQ/270ML bag 270 ML IV PRN (09:08)
--- NOTE | 2023-01-08 09:57 | NUR ---
Nutrition Consult: Pt post-op day 3 s/p CABGx2 advanced to carb controlled diet this AM from clear liquids per EMR. Pt seen by RD for written/verbal high protein/DM/HH diet eds w/ RD contact information provided. Pt is agreeable to peach/strawberry Mark roberto SALDAÑA; PA notified. RD encouraged pt to contact dietitian's office if further nutrition questions/concerns. Addendum: 01/08/23 at [address] Amended: Links added.
[2023-01-08] MEDS: insulin Lispro (HumaLOG) vial - multi-dose SQ SCH ×3 (10:11→22:26)
[2023-01-08] MEDS: insulin glargine (Lantus) pen - multi-dose SQ SCH (10:12)
[2023-01-08] MEDS: JUVEN Smoothie Arginine/Glut./Ca2+Bmb (Juven 19.3pkt) 240ml cup PO SCH (12:30)
--- NOTE | 2023-01-08 13:25 | NUR ---
Pt transferred to room 3022. Met receiving JOANN Whaley at bedside.
--- NOTE | 2023-01-08 19:04 | NUR ---
Problems reprioritized. Patient report given, questions answered & plan of care reviewed with JOANN RAMSAY.
[2023-01-08] MEDS: magnesium Cl slow-release 64mg tablet PO SCH (20:05)
[2023-01-08] MEDS: Terazosin 1mg capsule PO SCH (20:06)
[2023-01-08] MEDS: atorvastatin 10mg tablet PO SCH (20:06)
[2023-01-09 02:00] VITALS: BP 121/70
[2023-01-09 06:00] VITALS: BP 115/61
[2023-01-09 06:41] LABS: ACT @ 1.70 U 301 SEC (193-297); ACT @ 2.84 U 449 SEC (260-420); BASELINE ACT 162 SEC (101-148)
--- NOTE | 2023-01-09 06:53 | NUR ---
Patient in room PCU 3022. I have received report from JOANN RAMSAY, and had the opportunity to ask questions and assume patient care.
[2023-01-09] MEDS: levoTHYROXINE 88mcg tablet PO SCH (07:08)
[2023-01-09 07:43] LABS: BASOPHILS % (AUTO) 0.2 % (0-1); EOSINOPHILS # (AUTO) 0.3 X10'3 (0-0.9); EOSINOPHILS % (AUTO) 3.2 % (0-6); HEMATOCRIT 30.5 % (42.0-52.0); LYMPHOCYTES # (AUTO) 1.2 X10'3 (1.1-4.8); LYMPHOCYTES % (AUTO) 13.3 % (21-51); MEAN CORPUSCULAR HEMOGLOBIN 30.5 PG (27.0-31.0); MEAN CORPUSCULAR HGB CONC 32.6 g/dL (33.0-36.5); MEAN CORPUSCULAR VOLUME 93.5 FL (78-98); MEAN PLATELET VOLUME 8.1 FL (7.4-10.4); MONOCYTES # (AUTO) 0.9 X10'3 (0-0.9); NEUTROPHILS # (AUTO) 6.4 X10'3 (1.8-7.7); NEUTROPHILS % (AUTO) 73.3 % (42-75); PLATELET COUNT 187 X10'3 (140-440); RED BLOOD COUNT 3.26 X10'6 (4.70-6.10); RED CELL DISTRIBUTION WIDTH 14.2 % (11.5-14.5); WHITE BLOOD COUNT 8.8 X10'3 (4.5-11.0)
[2023-01-09 07:56] LABS: ALBUMIN 2.6 G/DL (3.4-5.0); ANION GAP 7 (8-16); BLOOD UREA NITROGEN 46 MG/DL (7-18); BUN/CREATININE RATIO 17.4 (5.4-32.0); CALCIUM 8.6 MG/DL (8.5-10.1); CHLORIDE 107 MMOL/L (99-107); CREATININE 2.65 MG/DL (0.60-1.10); GLUCOSE 147 MG/DL (70-104); POTASSIUM 4.6 MMOL/L (3.5-5.1); SODIUM 136 MMOL/L (135-145); TOTAL CARBON DIOXIDE 21.7 MMOL/L (24-32); eGFR 24 ML/MIN
[2023-01-09] MEDS: insulin Lispro (HumaLOG) vial - multi-dose SQ SCH ×3 (08:32→19:04)
[2023-01-09] MEDS: insulin glargine (Lantus) pen - multi-dose SQ SCH (08:36)
[2023-01-09] MEDS: cholecalciferol (vitamin D3) 1,000 unit (25mcg) tablet PO SCH (08:43)
[2023-01-09] MEDS: magnesium Cl slow-release 64mg tablet PO SCH ×2 (08:43→19:07)
[2023-01-09] MEDS: aspirin 81mg tab.chew PO SCH (08:43)
[2023-01-09] MEDS: sennosides/docusate sodium tablet PO SCH ×2 (08:43→19:07)
[2023-01-09] MEDS: pantoprazole 40mg Tablet.DR PO SCH (08:44)
[2023-01-09] MEDS: metoprolol tartrate 12.5mg (1/2 tablet) PO SCH ×2 (08:44→19:09)
[2023-01-09] MEDS: multivitamins, therapeutics tablet PO SCH (08:44)
[2023-01-09] MEDS ORDERED: furosemide 20MG tablet PO ONE (09:40)
[2023-01-09 11:00] VITALS: BP 106/56
[2023-01-09] MEDS: JUVEN Smoothie Arginine/Glut./Ca2+Bmb (Juven 19.3pkt) 240ml cup PO SCH (13:08)
--- NOTE | 2023-01-09 13:59 | NUR ---
Initial: Pt admit DX CAD post-op day 4 s/p CABGx2 per EMR. PO fluctuates though slowly improving post-op ~60% avg carb controlled meals w/ 100% protein and initial Mark smoothie BID meeting protein needs and ~77% estimated kcal needs. LBM 3/4 receiving routine senna per EMR. Will monitor for further PO trends and nutrition intervention needs this admit. Rec: 1. continue carb controlled diet; encourage PO 2. peach/strawberry smoothie BIDBL for wound healing; initially strawberry-banana but currently out of bananas per dietary 3. MVI for wound healing 4. routine bowel care 5. weekly wts Addendum: 01/09/23 at [address] Amended: Links added.
[2023-01-09 15:00] VITALS: BP 140/72
[2023-01-09 18:00] VITALS: BP 140/48
--- NOTE | 2023-01-09 18:20 | NUR ---
Problems reprioritized. Patient report given, questions answered & plan of care reviewed with JOANN KEITA.
[2023-01-09] MEDS: Terazosin 1mg capsule PO SCH (21:05)
[2023-01-09] MEDS: atorvastatin 10mg tablet PO SCH (21:06)
[2023-01-09] MEDS: HYDROcodone/acetaminophen 10/325mg tab PO PRN (21:07)
[2023-01-09 22:00] VITALS: BP 120/63
[2023-01-10] MEDS: HYDROcodone/acetaminophen 10/325mg tab PO PRN (01:18)
[2023-01-10 01:22] VITALS: BP 130/54
--- NOTE | 2023-01-10 06:23 | NUR ---
Problems reprioritized. Patient report given, questions answered & plan of care reviewed with BETY,RN.
[2023-01-10 06:51] LABS: BASOPHILS % (AUTO) 0.3 % (0-1); EOSINOPHILS # (AUTO) 0.4 X10'3 (0-0.9); EOSINOPHILS % (AUTO) 5.9 % (0-6); HEMATOCRIT 27.4 % (42.0-52.0); LYMPHOCYTES # (AUTO) 1.5 X10'3 (1.1-4.8); MEAN CORPUSCULAR HEMOGLOBIN 30.3 PG (27.0-31.0); MEAN CORPUSCULAR HGB CONC 32.8 g/dL (33.0-36.5); MEAN CORPUSCULAR VOLUME 92.2 FL (78-98); MEAN PLATELET VOLUME 8.2 FL (7.4-10.4); MONOCYTES # (AUTO) 0.7 X10'3 (0-0.9); MONOCYTES % (AUTO) 10.4 % (2-12); NEUTROPHILS # (AUTO) 4.1 X10'3 (1.8-7.7); NEUTROPHILS % (AUTO) 61.4 % (42-75); PLATELET COUNT 212 X10'3 (140-440); RED BLOOD COUNT 2.97 X10'6 (4.70-6.10); RED CELL DISTRIBUTION WIDTH 14.1 % (11.5-14.5); WHITE BLOOD COUNT 6.6 X10'3 (4.5-11.0)
[2023-01-10 07:00] VITALS: BP 124/57
[2023-01-10 07:04] LABS: ALBUMIN 2.5 G/DL (3.4-5.0); ANION GAP 8 (8-16); BLOOD UREA NITROGEN 52 MG/DL (7-18); BUN/CREATININE RATIO 18.6 (5.4-32.0); CALCIUM 8.3 MG/DL (8.5-10.1); CHLORIDE 108 MMOL/L (99-107); GLUCOSE 132 MG/DL (70-104); POTASSIUM 4.5 MMOL/L (3.5-5.1); SODIUM 139 MMOL/L (135-145); TOTAL CARBON DIOXIDE 22.6 MMOL/L (24-32); eGFR 23 ML/MIN
[2023-01-10] MEDS: JUVEN Smoothie Arginine/Glut./Ca2+Bmb (Juven 19.3pkt) 240ml cup PO SCH (07:30)
[2023-01-10] MEDS: sennosides/docusate sodium tablet PO SCH (08:00)
[2023-01-10] MEDS: levoTHYROXINE 88mcg tablet PO SCH (08:33)
[2023-01-10] MEDS: multivitamins, therapeutics tablet PO SCH (08:33)
[2023-01-10] MEDS: pantoprazole 40mg Tablet.DR PO SCH (08:33)
[2023-01-10] MEDS: magnesium Cl slow-release 64mg tablet PO SCH (08:33)
[2023-01-10] MEDS: aspirin 81mg tab.chew PO SCH (08:33)
[2023-01-10] MEDS: cholecalciferol (vitamin D3) 1,000 unit (25mcg) tablet PO SCH (08:34)
[2023-01-10] MEDS: metoprolol tartrate 12.5mg (1/2 tablet) PO SCH (08:34)
[2023-01-10] MEDS ORDERED: HYDR-3972 PO (08:52)
[2023-01-10] MEDS: insulin Lispro (HumaLOG) vial - multi-dose SQ SCH (09:47)
[2023-01-10] MEDS: insulin glargine (Lantus) pen - multi-dose SQ SCH (09:49)
[2023-01-10 11:07] VITALS: BP 141/60
[2023-01-14] MEDS ORDERED: ADALIMUMAB 20 MG SQ SCH (09:00)
== END 2023-01-10 11:26 | disposition home health service (06) | DRG 233 ==
LOC: SSTAY O 14:44 → PCU 3S 19:00 → CICU 2S 01-05 14:36 → PCU 3S 01-08 13:41
PROVIDERS: ADMIT Internal Medicine Interventional Cardiology; ATTEND Internal Medicine Interventional Cardiology
PROC: 4A023N7 Measurement of Cardiac Sampling and Pressure, Left Heart, Percutaneous Approach (ICD-10-PCS; 2023-01-04)
PROC: B2111ZZ Fluoroscopy of Multiple Coronary Arteries using Low Osmolar Contrast (ICD-10-PCS; 2023-01-04)
PROC: B2151ZZ Fluoroscopy of Left Heart using Low Osmolar Contrast (ICD-10-PCS; 2023-01-04)
PROC: 021009W Bypass Coronary Artery, One Artery from Aorta with Autologous Venous Tissue, Open Approach (ICD-10-PCS; 2023-01-05)
PROC: 06BQ4ZZ Excision of Left Saphenous Vein, Percutaneous Endoscopic Approach (ICD-10-PCS; 2023-01-05)
PROC: 5A1221Z Performance of Cardiac Output, Continuous (ICD-10-PCS; 2023-01-05)
PROC: B24BZZ4 Ultrasonography of Heart with Aorta, Transesophageal (ICD-10-PCS; 2023-01-05)
PROC: 02100Z9 Bypass Coronary Artery, One Artery from Left Internal Mammary, Open Approach (ICD-10-PCS; principal; 2023-01-05 12:36)
DX: I25.110 Atherosclerotic heart disease of native coronary artery with unstable angina pectoris (principal); N17.0 Acute kidney failure with tubular necrosis; N18.4 Chronic kidney disease, stage 4 (severe); N13.30 Unspecified hydronephrosis; E03.9 Hypothyroidism, unspecified; I95.9 Hypotension, unspecified; E11.22 Type 2 diabetes mellitus with diabetic chronic kidney disease; E66.9 Obesity, unspecified; E78.00 Pure hypercholesterolemia, unspecified; R94.39 Abnormal result of other cardiovascular function study; I12.9 Hypertensive chronic kidney disease with stage 1 through stage 4 chronic kidney disease, or unspecified chronic kidney disease; L40.50 Arthropathic psoriasis, unspecified; Z87.891 Personal history of nicotine dependence; Z79.899 Other long term (current) drug therapy; Z68.36 Body mass index [BMI] 36.0-36.9, adult; Z98.1 Arthrodesis status; Z79.1 Long term (current) use of non-steroidal anti-inflammatories (NSAID)
CPT/HCPCS: 0232T; 93312; 93325; 93458; 36415; 36600; 71045; 71046; 76770; 80048; 80053; 81001; 82330; 82435; 82570; 82803; 82947; 82948; 83036; 83735; 84100; 84132; 84156; 84295; 84300; 84443; 85018; 85025; 85347; 85384; 85610; 85730; 86885; 86900; 86901; 86920; 87081; 87207; 93005; 93880; 93970; 94002; 94003; 94010; 94640; 97116; 97161; 97530; 99152; A4333; A4615; A4618; A6213; A6258; A6402; A6449; A7000; A7048; C1751; C1769; C1894; G0378; J0690; J1644; J1815; J2060; J2150; J2250; J2270; J2440; J2704; J2720; J2930; J3010; J3370; J3475; J3480; J3490; J7030; J7040; J7050; J7120; P9045; P9047; Q0163; Q9967; S0020